=== PATIENT | male | born 1980 | race American Indian/Alaskan Native ===

== ENCOUNTER 2017-01-24 13:18 | Emergency (ER) | payer SELFPAY ==
[2017-01-24 14:14] LABS: Basophils % (Auto) 0.9 % (0.0-1.8); Eosinophils % (Auto) 0.9 % (0.0-4.3); Hematocrit 37.4 % (35.5-45.6); Hemoglobin 11.6 gm/dl (11.8-15.2); Mean Corpuscular HGB Conc 31 % (32-34); Mean Corpuscular Volume 76 fl (84-94); Platelet Count 506 K/mm3 (140-440); Red Blood Count 4.91 M/mm3 (3.65-5.03); Red Cell Distribution Width 18.1 % (13.2-15.2); White Blood Count 12.2 K/mm3 (4.5-11.0)
[2017-01-24 14:16] LABS: Anion Gap 21 mmol/L; BUN/Creatinine Ratio 15; Blood Urea Nitrogen 16 mg/dL (9-20); Calcium 9.4 mg/dL (8.4-10.2); Carbon Dioxide 25 mmol/L (22-30); Chloride 97.2 mmol/L (98-107); Glucose 85 mg/dL (75-100); Potassium 3.9 mmol/L (3.6-5.0); Sodium 139 mmol/L (137-145)
[2017-01-24 14:19] LABS: Mean Corpuscular Hemoglobin 24 pg (28-32)
--- NOTE | 2017-01-24 14:42 | XRay Report ---
ROUTINE CHEST, TWO VIEWS: HISTORY: Shortness of breath. The trachea, heart, mediastinal contour, lung albrecht and bony thorax are unremarkable. IMPRESSION: Unremarkable chest x-ray.
[2017-01-24 15:55] VITALS: BP 140/76
--- NOTE | 2017-01-24 17:18 | Emergency Department Report ---
HPI - General Chief Complaint: Dyspnea/Respdistress Time Seen by Provider: 01/24/17 17:03 - [facility] HPI: [place] 27 The patient is a 37-year-old male presenting with a chief complaint of cough sore throat and bodyaches. The patient states for the past 2 days he has had rhinorrhea, cough that is nonproductive and a sore throat. Patient missed a subjective fever shortness of breath. Patient complains of general body aches and hot and cold flashes. There've been no sick contacts that the patient can recall Location: [See above] Duration: 2 days Quality: Pain Severity: Moderate Modifying factors: [see above] Context: [see above] Mode of transportation: Unknown ED Past Medical Hx - Past Medical History Previous Medical History?: No - Surgical History Past Surgical History?: No - Family History Family history: no significant - Social History Smoking Status: Current Every Day Smoker (1/7 pack per day) Substance Use Type: Alcohol (occasional) - Medications Home Medications: Home Medications Medication Instructions Recorded Confirmed Last Taken Type ALBUTEROL Inhaler [Proair] 2 puff IH QID PRN #1 inhalation 01/24/17 Unknown Rx Amoxicillin [Amoxicillin TAB] 875 mg PO BID #14 tablet 01/24/17 Unknown Rx Cyclobenzaprine [Flexeril] 10 mg PO TID PRN #14 tablet 01/24/17 Unknown Rx Ibuprofen [Motrin 800 MG tab] 800 mg PO Q8HR PRN #20 tablet 01/24/17 Unknown Rx ED Review of Systems ROS: Stated complaint: CHEST PAIN/SOB/BODY PAIN Other details as noted in HPI Constitutional: chills, fever (subjective) ENT: throat pain Respiratory: cough, shortness of breath Musculoskeletal: myalgia Physical Exam - Physical Exam Vital Signs: Vital Signs 01/24/17 01/24/17 01/24/17 13:38 15:53 15:55 Temperature 98.2 F 98.8 F Pulse Rate 103 H 72 Respiratory 22 18 18 Rate Blood Pressure 131/88 Blood Pressure 140/76 [Left] O2 Sat by Pulse 97 97 98 Oximetry Physical Exam: GENERAL: The patient is well-developed well-nourished male lying on stretcher not appearing to be in acute distress. [] HEENT: Normocephalic. Atraumatic. Extraocular motions are intact. Patient has moist mucous membranes. Pharynx slightly erythematous. No exudate seen. Uvula midline NECK: Supple. No meningitic signs are noted. Trachea midline. No stridor CHEST/LUNGS: Clear to auscultation. There is no respiratory distress noted. HEART/CARDIOVASCULAR: Regular. There is no tachycardia. There is no gallop rub or murmur. ABDOMEN: Abdomen is soft, nontender. Patient has normal bowel sounds. There is no abdominal distention. SKIN: There is no rash. There is no edema. There is no diaphoresis. NEURO: The patient is awake, alert, and oriented. The patient is cooperative. The patient has normal speech MUSCULOSKELETAL: There is no evidence of acute injury. ED Course Vital Signs 01/24/17 01/24/17 01/24/17 13:38 15:53 15:55 Temperature 98.2 F 98.8 F Pulse Rate 103 H 72 Respiratory 22 18 18 Rate Blood Pressure 131/88 Blood Pressure 140/76 [Left] O2 Sat by Pulse 97 97 98 Oximetry ED Medical Decision Making - Lab Data Result diagrams: 01/24/17 13:48 01/24/17 13:44 Laboratory Tests 01/24/17 01/24/17 13:44 13:48 WBC 12.2 H RBC 4.91 Hgb 11.6 L Hct 37.4 MCV 76 L MCH 24 L MCHC 31 L RDW 18.1 H Plt Count 506 H Lymph % (Auto) 23.4 [place] % (Auto) 11.4 H Eos % (Auto) 0.9 Baso % (Auto) 0.9 Lymph # 2.9 [place] # 1.4 H Eos # 0.1 Baso # 0.1 Seg Neutrophils % 63.4 Seg Neutrophils # 7.8 H Sodium 139 Potassium 3.9 Chloride 97.2 L Carbon Dioxide 25 Anion Gap 21 BUN 16 Creatinine 1.1 Estimated GFR > 60 BUN/Creatinine Ratio 15 Glucose 85 Calcium 9.4 Troponin T < 0.010 Influenza negative - EKG Data -: EKG Interpreted by Me EKG shows normal: sinus rhythm Rate: normal - EKG Data When compared to previous EKG there are: previous EKG unavailable Interpretation: nonspecific ST-T wave michelle (biphasic T waves in leads V3, V4, V5) - Radiology Data Radiology results: report reviewed (chest x-ray), image reviewed (chest x-ray) interpreted by me: Chest x-ray-no focal infiltrates, no pneumothorax ROUTINE CHEST, TWO VIEWS: HISTORY: Shortness of breath. The trachea, heart, mediastinal contour, lung albrecht and bony thorax are unremarkable. IMPRESSION: Unremarkable chest x-ray. Transcribed By: TTR Dictated By: BECKY ANDRES JR, MD Electronically Authenticated By: BECKY ANDRES JR, MD Signed Date/Time: 01/24/171436 DD/ 36 TD/TT: 01/24/171436 - Differential Diagnosis influenza, pharyngitis, bronchitis, pneumonia Critical care attestation.: If time is entered above; I have spent that time in minutes in the direct care of this critically ill patient, excluding procedure time. ED Disposition Clinical Impression: Pharyngitis, URI (upper respiratory infection) Disposition: TO HOME OR SELFCARE Is pt being admited?: No Does the pt Need Aspirin: No Condition: Stable Instructions: Pharyngitis (ED) Additional Instructions: Return to the emergency department immediately should you develop worsening symptoms, fever, inability to tolerate food or liquid or any other concerns. Prescriptions: ALBUTEROL Inhaler [Proair] 2 puff IH QID PRN #1 inhalation PRN Reason: Shortness Of Breath Amoxicillin [Amoxicillin TAB] 875 mg PO BID #14 tablet Cyclobenzaprine [Flexeril] 10 mg PO TID PRN #14 tablet PRN Reason: Muscle Spasm Ibuprofen [Motrin 800 MG tab] 800 mg PO Q8HR PRN #20 tablet PRN Reason: Pain Referrals: PRIMARY CAREMD [Primary Care Provider] - 3-5 Days [facility] [Outside] - 3-5 Days MOR MCGHEE MD [Staff Physician] - 3-5 Days (Dr. Mcghee is a primary physician. Please follow up with her to be established as a patient) Time of Disposition: 18:16
== END 2017-01-24 18:28 | disposition home or self-care (01) ==
LOC: ED 13:18
DX: J02.9 Acute pharyngitis, unspecified (principal); F17.200 Nicotine dependence, unspecified, uncomplicated
CPT/HCPCS: 36415; 71020; 80048; 84484; 85025; 87400; 93005; 93010; 99284